=== PATIENT | male | born 1985 | race Two or more races ===

== ENCOUNTER 2017-12-16 21:30 | Emergency (ER) | payer BC ==
--- NOTE | 2017-12-16 22:23 | EDM.PDOC ---
ED HPI GENERAL MEDICAL PROBLEM - General Chief Complaint: General Stated Complaint: fever, swollen neck, nausea, Time Seen by Provider: 12/16/17 21:42 Source of Information: Reports: Patient History Limitations: Reports: No Limitations - History of Present Illness INITIAL COMMENTS - FREE TEXT/NARRATIVE: Patient comes in this evening with complaints of fever for over week, nausea and decreased appetite, swollen left neck. He reports he started getting sick last week Tuesday then felt like she is getting better and then went back to work Tuesday, , and Tuesday of this week. He now states like he feels like he's reinfected and is now febrile again. He has had fevers of up to 103. He states he has been somewhat nauseated at times. He denies any chest pain, shortness of breath, sinus pressure or headaches, he is having regular bowel and bladder movements. He also denies abdominal pain. He does state he has allergies to the cycline family of medications. 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 [No Known Home Meds] 12/16/17 [History] Past Medical History - Past Health History Medical/Surgical History: Denies Medical/Surgical History Social & Family History - Tobacco Use Smoking Status *Q: Unknown Ever Smoked ED ROS GENERAL - Review of Systems Review Of Systems: See Below Constitutional: Reports: Fever, Chills, Diaphoresis HEENT: Reports: Throat Pain, Other (swollen glands) Respiratory: Reports: No Symptoms Cardiovascular: Reports: No Symptoms Endocrine: Reports: Fatigue GI/Abdominal: Reports: Nausea : Reports: No Symptoms Musculoskeletal: Reports: No Symptoms Skin: Reports: No Symptoms Neurological: Reports: No Symptoms Psychiatric: Reports: No Symptoms Hematologic/Lymphatic: Reports: No Symptoms Immunologic: Reports: No Symptoms ED EXAM, GENERAL - Physical Exam Exam: See Below Exam Limited By: No Limitations General Appearance: Alert, WD/WN, Mild Distress Eye Exam: Bilateral Eye: PERRL Ears: Normal TMs Nose: Normal Inspection, Normal Mucosa, No Blood Throat/Mouth: Normal Inspection, Normal Lips, Normal Teeth, Normal Gums, Normal Oropharynx, Normal Voice, No Airway Compromise Head: Atraumatic, Normocephalic Neck: Lymphadenopathy (L) (enlarged left sided parotid/lymph node gland) Respiratory/Chest: No Respiratory Distress, Lungs Clear, Normal Breath Sounds, No Accessory Muscle Use, Chest Non-Tender Cardiovascular: Normal Peripheral Pulses, Regular Rate, Rhythm, No Edema, No Gallop, No JVD, No Murmur, No Rub GI/Abdominal: Normal Bowel Sounds, Soft, Non-Tender, No Organomegaly, No Distention, No Abnormal Bruit, No Mass Back Exam: Normal Inspection, Full Range of Motion, NT Extremities: Normal Inspection, Normal Range of Motion, Non-Tender, Normal Capillary Refill, No Pedal Edema Neurological: Alert, Oriented, CN II-XII Intact, Normal Cognition, Normal Gait, Normal Reflexes, No Motor/Sensory Deficits Psychiatric: Normal Affect, Normal Mood Skin Exam: Diaphoretic Lymphatic: Adenopathy (left sided parotid gland swelling) Course - Vital Signs Last Recorded V/S: Last Vital Signs Temp 39.2 C H 12/16/17 21:49 Pulse 116 H 12/16/17 21:49 Resp 16 12/16/17 21:49 BP 161/109 H 12/16/17 21:49 Pulse Ox 96 12/16/17 21:49 - Orders/Labs/Meds Labs: Laboratory Tests 12/16/17 Range/Units 21:56 WBC 5.4 (4.0-10.0) x10^3/uL RBC 5.28 (4.5-6.0) x10^6/uL Hgb 16.3 (14.0-18.0) g/dL Hct 47.1 (40.0-52.0) % MCV 89.2 (78.0-93.0) fL MCH 30.9 (26.0-32.0) pg MCHC 34.6 (32.0-36.0) g/dL RDW Coeff of Henry 12.7 (10.0-15.0) % Plt Count 248 (130-400) x10^3/uL Neut % (Auto) 48.7 L (50.0-80.0) % Lymph % (Auto) 29.7 (25.0-50.0) % [place] % (Auto) 19.5 H (2.0-11.0) % Eos % (Auto) 1.5 (0.0-4.0) % Baso % (Auto) 0.6 (0.2-1.2) % Departure - Departure Time of Disposition: 22:25 Disposition: Home, Self-Care 01 Condition: Good Clinical Impression: Strep pharyngitis - Discharge Information Instructions: Strep Throat, [id number] Forms: ED Department Discharge Additional Instructions: I did treat you for Strep A to your throat. Based on your symptom complaints, fever, chills, nausea, decreased appetite and swollen glands, I did not do a swab. While it is less likely that you can get strep throat because of your tonsilectomy, you can still contract it. Your influenza result was negative. Stay well hydrated and treat your fever with ibuprofen and tylenol. If you do not feel better over the next few days, certainly make an appointment with your primary doctor to follow up. You can call us with any questions or concerns. - Problem List & Annotations (1) Strep pharyngitis SNOMED Code(s): 08176229 Code(s): J02.0 - STREPTOCOCCAL PHARYNGITIS Status: Acute Priority: Low Current Visit: Yes - Problem List Review Problem List Initiated/Reviewed/Updated: Yes - Assessment/Plan Assessment:: Strep A pharyngitis Plan: I did treat you for Strep A to your throat. Based on your symptom complaints, fever, chills, nausea, decreased appetite and swollen glands, I did not do a swab. While it is less likely that you can get strep throat because of your tonsilectomy, you can still contract it. Your influenza result was negative. Stay well hydrated and treat your fever with ibuprofen and tylenol. If you do not feel better over the next few days, certainly make an appointment with your primary doctor to follow up. You can call us with any questions or concerns.
[2017-12-16] MEDS: Penicillin G Benzathine/Procaine 900-300 1.2 Millunits/2 ML Syringe IM ONE (22:27)
== END 2017-12-16 22:42 | disposition home or self-care (01) ==
LOC: VM.ED 21:30
DX: J02.0 Streptococcal pharyngitis (principal); Z88.1 Allergy status to other antibiotic agents
CPT/HCPCS: 36415; 85025; 87804; 96372; 99283; J0558